=== PATIENT | female | born 1965 | race Caucasian/White ===

== ENCOUNTER 2024-09-16 09:52 | Emergency (ER) | payer OTHER, SELFPAY ==
[2024-09-16 09:56] VITALS: BP 145/98
[2024-09-16 10:11] LABS: % Basophils 0.5 % (0-2); % Lymphocytes 23.5 % (20.5-51.1); % Monocytes 6.7 % (1.7-9.3); % Neutrophils 67.3 % (42.2-75.2); Absolute Basophils 0.1 10^3/uL (0-0.2); Absolute Eosinophils 0.1 10^3/uL (0-0.7); Absolute Immature Granulocytes 0.1 10^3/uL (0-0.05); Absolute Lymphocytes 2.9 10^3/uL (1.2-3.4); Absolute Monocytes 0.8 10^3/uL (0.1-0.6); Absolute Neutrophils 8.4 10^3/uL (1.4-6.5); Hematocrit 44.7 % (37.0-47.0); Hemoglobin 15.2 g/dL (12.0-16.0); Mean Corpuscular Hgb 29.9 pg (27.0-31.0); Mean Corpuscular Volume 87.8 fL (81.0-99.0); Mean Platelet Volume 10.1 fL (7.4-10.4); Nucleated Red Blood Cells % 0 %; Platelet Count 390 10^3/uL (130-400); Red Blood Cell Count 5.09 10^6/uL (4.20-5.40); Red Cell Dist. Width 13.7 % (11.5-14.5); White Blood Cell Count 12.5 10^3/uL (4.8-10.8)
[2024-09-16 10:36] LABS: NT-proBNP 44.5 pg/ml
[2024-09-16 10:40] LABS: ALT (SGPT) 15 U/L (0-35); AST (SGOT) 20 U/L (14-36); Albumin 2.5 g/dl (3.5-5.0); Alkaline Phosphatase 91 U/L (38-126); Blood Urea Nitrogen 17 mg/dl (7-17); Calcium 8.4 mg/dl (8.4-10.2); Carbon Dioxide 25 mmol/L (22-30); Chloride 105 mmol/L (98-107); Glucose 115 mg/dl (70-99); Potassium 4.1 mmol/L (3.5-5.1); Sodium 135 mmol/L (135-145); Total Bilirubin 0.2 mg/dl (0.2-1.3); Total Protein 5.3 g/dl (6.3-8.2); eGFR > 60.00
--- NOTE | 2024-09-16 11:10 | ED.GENMED ---
History of Present Illness
<Gisell Bailey PA-C - Last Filed: 09/16/24 14:34>
General
Chief Complaint: Swelling
Source: patient
Exam Limitations: none
Time Seen by Provider: 09/16/24 11:08
Nursing documentation reviewed up to this point in time: agreed with
History of Present Illness
History of Present Illness:
This is a 58-year-old female with no past medical history who presents emergency department today with concerns of bilateral lower extremity edema. Patient reports that she first started noticing this 2 days ago. Of note, patient reports that
around a week ago, she went to urgent care and was diagnosed with walking pneumonia via chest x-ray and was started on azithromycin and methylprednisone. Patient reports that her symptoms have been improving however she feels like she still feels
chest congestion and has persistent cough. She denies any hemoptysis. She does note some exertional dyspnea. She denies chest pain. She denies any fevers or chills or palpitations. She denies any pain or redness in her legs. Patient states
that she has been resting at home and has not had any trauma to the area. Patient states that she noticed it when she went to go bend her leg and she felt fullness. This is never happened to her before. Patient denies any recent procedures or any
recent long distance travel.
Review of Systems
<Gisell Bailey PA-C - Last Filed: 09/16/24 14:34>
Review of Systems
All Other Systems: ROS reviewed and negative except as documented in HPI and ROS
Phy Exam
<Gisell Bailey PA-C - Last Filed: 09/16/24 14:34>
Physical Exam
Physical Exam:
General: Patient is well appearing and in no acute distress; non-toxic
Skin: Warm and dry, no rashes or lesions
Head: Normocephalic, atraumatic
Eyes: Sclera non-icteric. EOMs intact.
Cardiac: Regular rate and rhythm, no murmurs
Peripheral Vascular: b/l lower extremity edema extending up to the thigh, intact distal pulses
Pulm: Normal respiratory effort, no wheezes, rales, rhonchi
Musculoskeletal: No palpable bony deformities of bilateral lower extremities, no tenderness palpation of the calf bilaterally
Neuro: CN II-XII intact, no focal neurologic deficits.
Psychiatric: Appropriate mood and affect.
Scores
<Gisell Bailey PA-C - Last Filed: 09/16/24 14:34>
Heart Failure Risk
Heart Failure Risk Score: Not Applicable
Course
<FRANCISCO Rodriguez Last Filed: 09/16/24 14:34>
Orders/Labs/Results
Orders:
Orders
09/16/24 10:02
Complete Blood Count/With Diff Urgent
Comprehensive Metabolic Panel Urgent
NT-proBNP Urgent
09/16/24 11:44
CR Chest - 2 Views Urgent
Comment:
Reason For Exam: shortness of breath, treated for walking pneumonia
09/16/24 12:53
Urinalysis Reflex To Culture Urgent
Date Specimen was Collected: 09/16/24
Time Specimen was Collected: 11:51
Urine Microscopic Reflex Cult Urgent
09/16/24 13:31
Lisinopril [Zestril] 5 mg PO NOW STA
Abnormal Lab Results
09/16/24 09/16/24
10:02 12:53
WBC 12.5 H 10^3/uL
(4.8-10.8)
Abs Immat Gran (auto) 0.1 H 10^3/uL
(0-0.05)
Absolute Neuts (auto) 8.4 H 10^3/uL
(1.4-6.5)
Absolute Monos (auto) 0.8 H 10^3/uL
(0.1-0.6)
Immature Gran % 1.0 H %
(0-0.5)
Glucose 115 H mg/dl
(70-99)
Total Protein 5.3 L g/dl
(6.3-8.2)
Albumin 2.5 L g/dl
(3.5-5.0)
Ur Occult Blood Reflex 1+ A
(Negative)
Urine Albumin (Reflex) 4+ A
(Neg - Trace)
09/16/24 10:02
09/16/24 10:02
Vital Signs
Initial and Last Documented VS:
Initial Vital Signs
Temp Pulse Resp BP Pulse Ox
97.6 F 116 18 145/98 98
09/16/24 09:56 09/16/24 09:56 09/16/24 09:56 09/16/24 09:56 09/16/24 09:56
Last Documented Vital Signs
Temp Pulse Resp BP Pulse Ox
97.6 F 98 18 135/88 96
09/16/24 09:56 09/16/24 13:42 09/16/24 09:56 09/16/24 13:42 09/16/24 13:42
<Nuzhat Mensah MD - Last Filed: 09/16/24 13:23>
Orders/Labs/Results
Orders:
Orders
09/16/24 10:02
Complete Blood Count/With Diff Urgent
Comprehensive Metabolic Panel Urgent
NT-proBNP Urgent
09/16/24 11:44
CR Chest - 2 Views Urgent
Comment:
Reason For Exam: shortness of breath, treated for walking pneumonia
09/16/24 12:53
Urinalysis Reflex To Culture Urgent
Date Specimen was Collected: 09/16/24
Time Specimen was Collected: 11:51
Urine Microscopic Reflex Cult Urgent
09/16/24 13:31
Lisinopril [Zestril] 5 mg PO NOW STA
Abnormal Lab Results
09/16/24 09/16/24
10:02 12:53
WBC 12.5 H 10^3/uL
(4.8-10.8)
Abs Immat Gran (auto) 0.1 H 10^3/uL
(0-0.05)
Absolute Neuts (auto) 8.4 H 10^3/uL
(1.4-6.5)
Absolute Monos (auto) 0.8 H 10^3/uL
(0.1-0.6)
Immature Gran % 1.0 H %
(0-0.5)
Glucose 115 H mg/dl
(70-99)
Total Protein 5.3 L g/dl
(6.3-8.2)
Albumin 2.5 L g/dl
(3.5-5.0)
Ur Occult Blood Reflex 1+ A
(Negative)
Urine Albumin (Reflex) 4+ A
(Neg - Trace)
09/16/24 10:02
09/16/24 10:02
Vital Signs
Initial and Last Documented VS:
Initial Vital Signs
Temp Pulse Resp BP Pulse Ox
97.6 F 116 18 145/98 98
09/16/24 09:56 09/16/24 09:56 09/16/24 09:56 09/16/24 09:56 09/16/24 09:56
Last Documented Vital Signs
Temp Pulse Resp BP Pulse Ox
97.6 F 98 18 135/88 96
09/16/24 09:56 09/16/24 13:42 09/16/24 09:56 09/16/24 13:42 09/16/24 13:42
<Gisell Bailey PA-C - Last Filed: 09/16/24 14:34>
MDM/Problems Addressed
Differential Diagnosis Includes:
Dependent edema, CHF, bilateral DVT, nephrotic syndrome
MDM/Problems Addressed:
58-year-old female presents emergency department today with concerns of bilateral lower extremity edema which started around 2 days ago. Of note, patient recently stopped azithromycin and methylprednisone from walking pneumonia. Physical exam
patient with bilateral lower extremity edema extending up to mid thigh. Labs and urinalysis consistent with nephrotic syndrome. Patient states that she used to be on medication for her blood pressure a few years ago but recently stopped. Patient
believes that she used to be on lisinopril. I discussed case with nephrology who recommends starting patient back on an LIUDMILA inhibitor. Potassium and creatinine normal. Patient will be discharged on lisinopril with nephrology follow-up. Patient
stable for discharge.
Chronic conditions affecting care:
n/a
<Gisell Bailey PA-C - Last Filed: 09/16/24 14:34>
*Pulse Oximetry
Patient hypoxic: no
*Critical Care Note
Total Time (30-74mins, 75-104mins- exclusive of procedures): Not Applicable
Data Reviewed
Review of Other/Old Records Reveals: Records (No prior ER physician documentation to review) and Discharge Summary (no discharge summaries in [facility] to review )
Source: patient and records
<Gisell Bailey PA-C - Last Filed: 09/16/24 14:34>
Patient Management
Discussion with other providers: Tier In (nephrology )
Escalation/DeEscalation of care consider admission/obs:
admit not indicated patient stable for discharge
ED Attending Note
<Gisell Bailey PA-C - Last Filed: 09/16/24 14:34>
-
Portions of this chart may have been created with voice recognition software.� Occasional wrong word or��sound alike� substitutions may have occurred due to the inherent limitations of voice recognition software.
<Nuzhat Mensah MD - Last Filed: 09/16/24 13:23>
ED Attending Note
Patient seen and examined by attending physician: Yes
I performed the substantive portion of visit, reviewed & personally made and approve the management plan that is documented in note by myself or MIRANDA.: Yes
ED Attending Note:
Patient appears very well and comfortable. She is smiling and conversational. She denies shortness of breath and chest pain. She denies a history of PE and DVT. On exam her heart sounds regular lungs are clear. Patient does have pitting edema
of her bilateral lower extremities, equal on the left and right side, extending up to distal thighs bilaterally
Discharge Plan
Departure
Patient Disposition: Home (Routine Discharge)
Date of Disposition: 09/16/24
Time of Disposition: 13:31
Patient with high blood pressure during this ER visit?: Yes
Condition: Good
Discharge Problem:
Nephrotic syndrome
Instructions: Swelling, Lisinopril, Nephrotic syndrome, BLOOD PRESSURE
Prescriptions:
New
lisinopril 5 mg tablet
5 mg PO DAILY Qty: 30 0RF
Referrals:
Leobardo Rowley MD [Active] - Call in 1-3 days for appt
Margaret Miner PA-C [Family Provider] -
Activity Restrictions/Additional Instructions:
You should receive a call from Dr. Rowley's office (nephrology) to schedule an appointment for follow up. Please call the attached number should you not here from them in the next few days.
Lisinopril sent been sent to your pharmacy. Please take 1 tablet once daily.
PLEASE RETURN EMERGENCY DEPARTMENT SHOULD YOU DEVELOP CHEST PAIN, SHORTNESS OF BREATH, SWELLING OF THE LIPS OR TONGUE, TROUBLE BREATHING OR SWALLOWING, BLOOD IN YOUR URINE, FLANK PAIN, OR ANY OTHER SIGNS OR SYMPTOMS WORRISOME TO YOU
Interventions
Interventions:
*Risk Screen - Suicide Last Done: 09/16/24 09:56
*General Assessment Last Done: 09/16/24 09:56
*Neglect/Abuse Screening Last Done: 09/16/24 09:56
ED- Fall Risk Assessment Last Done: 09/16/24 13:42
*ED COVID-19 Vaccine History Last Done: 09/16/24 09:56
*Nursing Disposition Last Done: 09/16/24 13:44
ED- Cardiac Assessment Last Done: 09/16/24 13:42
ED- Pulmonary Assessment Last Done: 09/16/24 13:42
ED-Skin Assessment Last Done: 09/16/24 13:42
Discharge Date and Time
Discharge Date/Time: 09/16/24 13:44
Print Language: BRAZILIAN
[2024-09-16 13:06] LABS: Urine Albumin 4+ (Neg - Trace); Urine Bilirubin Negative (Negative); Urine Character Clear (Clear); Urine Color Yellow; Urine Glucose Negative (Negative); Urine Ketone Negative (Negative); Urine Leukocyte Negative (Negative); Urine Nitrite Negative (Negative); Urine Occult Blood 1+ (Negative); Urine Specific Gravity 1.015 (<1.030); Urine Urobilinogen Negative (Neg - 1+)
[2024-09-16 13:20] LABS: Urine Hyaline Cast >15 /LPF (0-2); Urine Red Blood Cell 0-2 /HPF (0-2)
[2024-09-16 13:22] LABS: Urine Squamous Cell 0-2 /LPF (Few)
[2024-09-16 13:42] VITALS: BP 135/88
[2024-09-16] MEDS: ZESTRIL 5 MG PO (13:43)
== END 2024-09-16 13:44 | disposition home or self-care (01) ==
LOC: EMR 09:52
PROVIDERS: Emergency Medicine; Physician Assistant; EMERGENCY PHYSICIAN Emergency Medicine; FAMILY PHYSICIAN Physician Assistant Medical
DX: N04.9 Nephrotic syndrome with unspecified morphologic changes (principal); R03.0 Elevated blood-pressure reading, without diagnosis of hypertension
CPT/HCPCS: 99284; 71046; 80053; 81003; 81015; 83880; 85025

== ENCOUNTER 2024-09-29 06:57 | Outpatient (REF) | payer OTHER, SELFPAY ==
[2024-09-29] VITALS (15 sets, daily range): BP systolic 82–124; BP diastolic 58–74
[2024-09-29 07:31] LABS: % Basophils 0.5 % (0-2); % Eosinophils 0.5 % (0-6); % Immature Granulocytes 0.9 % (0-0.5); % Lymphocytes 27.6 % (20.5-51.1); % Monocytes 7.8 % (1.7-9.3); % Neutrophils 62.7 % (42.2-75.2); Absolute Immature Granulocytes 0.1 10^3/uL (0-0.05); Absolute Lymphocytes 2.3 10^3/uL (1.2-3.4); Absolute Monocytes 0.6 10^3/uL (0.1-0.6); Absolute Neutrophils 5.2 10^3/uL (1.4-6.5); Hematocrit 46.7 % (37.0-47.0); Hemoglobin 15.5 g/dL (12.0-16.0); Mean Corp Hgb Conc. 33.2 g/dL (33.0-37.0); Mean Corpuscular Hgb 29.6 pg (27.0-31.0); Mean Corpuscular Volume 89.3 fL (81.0-99.0); Nucleated Red Blood Cells % 0 %; Platelet Count 475 10^3/uL (130-400); Red Blood Cell Count 5.23 10^6/uL (4.20-5.40); Red Cell Dist. Width 13.4 % (11.5-14.5); White Blood Cell Count 8.2 10^3/uL (4.8-10.8)
[2024-09-29 07:34] LABS: INR 1.07; PT 14.2 Sec (11.4-14.6)
[2024-09-29 07:50] LABS: Blood Urea Nitrogen 13 mg/dl (7-17); Calcium 7.9 mg/dl (8.4-10.2); Carbon Dioxide 26 mmol/L (22-30); Chloride 104 mmol/L (98-107); Glucose 122 mg/dl (70-99); Potassium 4.1 mmol/L (3.5-5.1); Sodium 133 mmol/L (135-145); eGFR > 60.00
[2024-09-29 13:59] LABS: Hematocrit 41.7 % (37.0-47.0); Hemoglobin 14.3 g/dL (12.0-16.0)
== END 2024-09-29 15:10 | disposition home or self-care (01) ==
LOC: RADI 06:57
PROVIDERS: Radiology Vascular & Interventional Radiology; ATTENDING PHYSICIAN Specialist; FAMILY PHYSICIAN Physician Assistant
DX: I12.9 Hypertensive chronic kidney disease with stage 1 through stage 4 chronic kidney disease, or unspecified chronic kidney disease (principal); N18.2 Chronic kidney disease, stage 2 (mild)
CPT/HCPCS: 36415; 50200; 76942; 80048; 85014; 85018; 85025; 85610; 88305; 99152; 99153

== ENCOUNTER → 2024-10-28 10:48 | Outpatient (REF) | payer OTHER, SELFPAY | LOC: HWRAD 10:48 | PROVIDERS: ATTENDING PHYSICIAN Physician Assistant Medical | DX: R09.81 Nasal congestion (principal) | CPT/HCPCS: 71046 ==

== ENCOUNTER → 2025-03-24 13:18 | Outpatient (REF) | payer OTHER, SELFPAY | LOC: RAD 13:18 | PROVIDERS: ATTENDING PHYSICIAN Physician Assistant Medical | DX: R31.9 Hematuria, unspecified (principal); N93.9 Abnormal uterine and vaginal bleeding, unspecified | CPT/HCPCS: 76770; 76830; 76856 ==

== ENCOUNTER 2025-04-02 06:20 | Day surgery (SDC) | payer OTHER, SELFPAY ==
[2025-03-31 13:49] VITALS: BMI 27.9
--- NOTE | 2025-03-31 14:45 | PTCARENOTE ---
Abnormal EKG reviewed by Dr. Banerjee, no further action requested.
[2025-04-02 12:30] VITALS: BP 135/85
[2025-04-02 12:59] VITALS: BMI 27.9
[2025-04-02] MEDS: NORMOSOL-R/PLASMALYTE-A 1000 IV (13:17)
[2025-04-02 14:17] VITALS: BP 135/85
[2025-04-02] MEDS: DILAUDID 0.5 MG IV (14:41)
[2025-04-02 14:46] VITALS: BP 114/72
[2025-04-02 15:00] VITALS: BP 119/69
[2025-04-02 15:15] VITALS: BP 107/71
[2025-04-02 15:30] VITALS: BP 126/74
== END 2025-04-02 15:48 | disposition home or self-care (01) ==
LOC: SDS 06:20
PROVIDERS: ATTENDING PHYSICIAN Obstetrics & Gynecology; FAMILY PHYSICIAN Physician Assistant Medical
DX: N95.0 Postmenopausal bleeding (principal); N88.2 Stricture and stenosis of cervix uteri
CPT/HCPCS: 58558; 36415; 88305; 93005